=== PATIENT | male | born 1990 | race Caucasian/White ===

== ENCOUNTER 2016-12-04 17:32 | Emergency (ER) | payer SELFPAY ==
--- NOTE | 2016-12-04 17:53 | EDPHY ---
H & P Stated Complaint: URI sxs x several days, no fever,coughing yellow mucous Time Seen by Provider: 12/04/16 17:49 HPI/ROS: CHIEF COMPLAINT: URI symptoms HISTORY OF PRESENT ILLNESS: 26-year-old male presents emergency department complaining of a cough, nasal congestion, subjective fevers and chills times 3 days. Patient reports a mild sore throat. He states his cough is productive, keeping him up at night, worse at night. He smokes 1 pack of cigarettes daily. He has been taking [id number] cold medicine with minimal relief. Denies neck pain no nausea, vomiting or diarrhea. No ear pain. Patient denies chest pain and shortness of breath. REVIEW OF SYSTEMS: A comprehensive 10 point review of systems is otherwise negative aside from elements mentioned in the history of present illness. Source: Patient Exam Limitations: No limitations - Personal History Current Tetanus Diphtheria and Acellular Pertussis (TDAP): Yes - Medical/Surgical History Other PMH: "I don't know" - Social History Smoking Status: Current every day smoker Tobacco Use: Less than 1 pack/day Alcohol Use: None Drug Use: Marijuana - Physical Exam Exam: General: Alert, nontoxic. ENT: Tympanic membranes clear, external auditory canal, external ear and surrounding soft tissue including over the mastoid unremarkable. Nasopharynx is injected, there is no rhinorrhea. Oropharynx with erythema. There is no exudate. No tonsillar hypertrophy. No asymmetry. The uvula is midline. No elevation of tongue. There is no hoarseness. No drooling, patient has good control of their oral secretions. No trismus. No stridor. Cardiac: Regular rate and rhythm. Respiratory: Lungs clear to auscultation bilaterally. Neurological: no meningismus. Skin: No rashes. Constitutional: Initial Vital Signs Temperature (C) 37.5 C 12/04/16 17:44 Heart Rate 88 12/04/16 17:44 Respiratory Rate 18 12/04/16 17:44 Blood Pressure 130/74 H 12/04/16 17:44 O2 Sat (%) 95 12/04/16 17:44 O2 Delivery Mode Room Air Allergies/Adverse Reactions: Sulfa (Sulfonamide Antibiotics) Allergy (Unknown, Verified 12/04/16 17:47) Home Medications: Medication Instructions Recorded Albuterol [Proventil Inhaler HFA 1 - 2 puffs IH Q4H #1 mdi 12/04/16 (*)] Benzonatate [Tessalon Pearles (RX)] 100 mg PO Q6-8PRN PRN #20 cap 12/04/16 Fluticasone Nasal [Flonase Nasal 1 sprays NASAL DAILY #1 mdi 12/04/16 [place] (RX)] Medical Decision Making - Diagnostics Imaging Results: Imaging Impressions Chest X-Ray 12/04/16 18:24 Impression: Prominent scoliotic curvature. Chest negative for acute abnormality. Imaging: I viewed and interpreted images myself ED Course/Re-evaluation: Chest x-ray shows no evidence of pneumonia, room air oxygen saturations are 95% . The patient will be discharged with a prescription for Flonase, albuterol inhaler and Tessalon Perles. He is given strict return precautions. Differential Diagnosis: Diagnosis considered but not limited to viral URI, bronchitis, pneumonia, pertussis, influenza Departure - Departure Disposition: Home, Routine, Self-Care Clinical Impression: URI (upper respiratory infection) Qualifiers: URI type: unspecified viral URI Qualified Code(s): J06.9 - Acute upper respiratory infection, unspecified; B97.89 - Other viral agents as the cause of diseases classified elsewhere Condition: Good Instructions: Upper Respiratory Infection (ED) Additional Instructions: Drink plenty of fluids, take 600 mg of ibuprofen every 8 hours with food for 3- 5 days for fevers, body aches, you can also take 650 mg of Tylenol every 8 hours for fevers and body aches. Use Flonase, 1 spray in each nostril daily for 7 days, use 2 puffs of albuterol inhaler every 4-6 hours as needed for cough. Take Tessalon Perles as needed for cough. Stop smoking. Return to the emergency department for worsening symptoms, new symptoms or concerns. Prescriptions: Albuterol [Proventil Inhaler HFA (*)] 1 - 2 puffs IH Q4H #1 mdi Benzonatate [Tessalon Pearles (RX)] 100 mg PO Q6-8PRN PRN #20 cap PRN Reason: Cough, Moderate Fluticasone Nasal [Flonase Nasal [place] (RX)] 1 sprays NASAL DAILY #1 mdi
[2016-12-04 19:36] VITALS: BP 116/66; PULSE 66; RESP 16; TEMP 98.1; O2SAT 97
== END 2016-12-04 19:36 | disposition home or self-care (01) ==
DX: J06.9 Acute upper respiratory infection, unspecified (principal); B97.89 Other viral agents as the cause of diseases classified elsewhere; F17.200 Nicotine dependence, unspecified, uncomplicated